=== PATIENT | male | born 1990 | race Caucasian/White ===

== ENCOUNTER 2017-07-22 09:45 | Emergency (ER) | payer OTHER ==
[~2017-07-22] VITALS: Ht 177.8 cm; Wt 65.4 kg
[~2017-07-22 09:45] MED LIST: ZNTT/150 PO
[2017-07-22 09:56] VITALS: Ht 177.8 cm; Wt 65.4 kg
[2017-07-22 10:20] VITALS: BP 122/88; PULSE 82; TEMP 36.9; O2SAT 98
--- NOTE | 2017-07-22 12:20 | EMERGENCY ROOM VISIT NOTE ---
ED Visit Note First contact with patient: 10:04 CHIEF COMPLAINT: Staple removal This patient returns to the ED today for removal of stephie that were placed 10 days ago. There has been no swelling, redness, or drainage from the wound. The patient feels like the laceration is healing well. REVIEW OF SYSTEMS: Head: No headache, injury or neck pain. Skin: No rash, new lesions, or masses. General: No fever or chills, fatigue, loss of appetite , or significant recent weight gain or loss. PMH: Reviewed and unchanged from prior visit. SOCIAL HISTORY: Patient lives at home. PHYSICAL EXAM: Vital Signs: Reviewed Nurse's notes. There is a stapled wound on the scalp with no signs of infection. There is no erythema, swelling, or tenderness. EMERGENCY DEPARTMENT COURSE: The stephie were removed without any difficulty and there was no separation of the wound edges. Current/Historical Medications Scheduled Ranitidine (Zantac), 150 MG PO DAILY Allergies Coded Allergies: No Known Allergies (Unverified , 07/22/17) Vital Signs Date Time Temp Pulse Resp B/P (MAP) Pulse Ox O2 Delivery O2 Flow Rate FiO2 07/22/17 10:20 36.9 82 20 98 07/22/17 09:56 36.9 82 20 122/88 98 Room Air Departure Information Impression Primary Impression: Removal of stephie Dispostion Home / Self-Care Referrals Aldo Arzola M.D. (PCP) Forms HOME CARE DOCUMENTATION FORM, IMPORTANT VISIT INFORMATION Patient Instructions [facility]
== END 2017-07-22 10:21 | disposition home or self-care (01) ==
LOC: C.EDB 09:46 → C.EDA 10:21
DX: S01.01XD Laceration without foreign body of scalp, subsequent encounter (principal); X58.XXXD Exposure to other specified factors, subsequent encounter